=== PATIENT | male | born 1960 | race Caucasian/White ===

== ENCOUNTER → 2018-06-18 | Outpatient (CLI) | payer OTHER | LOC: COL.PUL 08:00 | DX: Z02.71 Encounter for disability determination (principal) ==

== ENCOUNTER → 2018-07-07 | Outpatient (CLI) | payer OTHER ==
[2018-07-07 10:46] LABS: HEMATOCRIT 38.3 % (42.0-52.0); HEMOGLOBIN 12.3 g/dl (13.5-18.0); MEAN CELL VOLUME 86 fl (80.0-100.0); MEAN CORPUSCULAR HEMOGLOBIN 28 pg (27.0-31.0); MEAN CORPUSCULAR HGB CONC 32 g/dl (33.0-37.0); MEAN PLATELET VOLUME 10.6 fl (7.4-10.4); PLATELET COUNT 313 K/mm3 (130-400); RED BLOOD COUNT 4.44 M/mm3 (4.20-5.60); REDCELL DISTRIBUTION WIDTH-CV 14.6 % (11.5-14.5)
[2018-07-07 10:55] LABS: ALBUMIN 4.4 gm/dL (3.5-5.0); CALCIUM 9.9 mg/dL (8.4-10.2); CREATININE, serum 1.34 mg/dL (0.66-1.25); PHOSPHOROUS 3.7 mg/dL (2.5-4.5); POTASSIUM 4.7 mmol/L (3.4-5.0)
== END ==
LOC: COL.LAB 10:13
DX: Z01.89 Encounter for other specified special examinations (principal)

== ENCOUNTER 2018-08-15 06:22 | Day surgery (SDC) | payer OTHER ==
[~2018-08-15] VITALS: Ht 167.6 cm; Wt 107.8 kg
[2018-08-15] MEDS ORDERED: DEMADEX 20MG20 M1 PO (06:44)
[2018-08-15] MEDS ORDERED: COZAAR100 MG PO (06:44)
[2018-08-15] MEDS ORDERED: K-TAB20 PO (06:46)
[2018-08-15] MEDS ORDERED: BYSTOLIC20 MG PO (06:46)
[2018-08-15] MEDS ORDERED: GLUCOPHAGE1000 MG PO (06:46)
[2018-08-15] MEDS ORDERED: HUMULIN R U-500 U/ML SQ (06:47)
[2018-08-15] MEDS ORDERED: JARDIANCE25 PO (06:48)
[2018-08-15] MEDS ORDERED: BASAGLAR K100 UNIT/1 SQ (06:48)
[2018-08-15] MEDS ORDERED: VICTOZA6 MG/ML SQ (06:48)
[2018-08-15] MEDS ORDERED: NEURONTIN600 MG/TAB PO (06:49)
[2018-08-15] MEDS ORDERED: LUPRON DEPOT45 MG INJ (06:50)
[2018-08-15] MEDS ORDERED: POLY-IRON 150150 MG PO (06:51)
[2018-08-15] MEDS ORDERED: PROTONIX 40MG T40 MG PO (06:51)
[2018-08-15] MEDS ORDERED: ULORIC40 MG PO (06:51)
[2018-08-15] MEDS ORDERED: CRESTOR5 MG PO (06:52)
[2018-08-15] MEDS ORDERED: NIASPAN1000 MG PO (06:52)
[2018-08-15] MEDS ORDERED: ASPIRIN 81M81 MG/TA2 PO (06:53)
[2018-08-15] MEDS ORDERED: OMEGA-3 1000 MG1 CAP PO (06:53)
[2018-08-15] MEDS ORDERED: THE MEDICINE S200 M2 PO (06:54)
[2018-08-15] MEDS ORDERED: VITAMIND3 5000 PO (06:54)
[2018-08-15] MEDS ORDERED: TRIAMCINOLONE A15 G1 TP (06:55)
[2018-08-15 06:56] VITALS: BP 146/84; PULSE 92; TEMP 99.1
--- NOTE | 2018-08-15 07:13 | NUR ---
Patient's blood glucose at [address] Salguero and Eric Rankin CRNA. VORB received from Dr. Salguero for moderate dose sliding scale Novolog. Order faxed to pharmacy. Will dose patient per sliding scale order and re-check blood glucose prior to OR.
--- NOTE | 2018-08-15 07:38 | NUR ---
eMAR would not allow co-signer to be entered for Novolog sliding scale dose. Shea Villafuerte double verified and served as co-signer for sliding scale dose of 8 units SQ Novolog.
--- NOTE | 2018-08-15 08:03 | NUR ---
Blood glucose re-checked at 0800, reading 330. Notified Dr. Salguero of result. Waiting for orders.
--- NOTE | 2018-08-15 08:05 | NUR ---
Maynor Granda CRNA at the bedside to evaluate patient.
--- NOTE | 2018-08-15 08:20 | NUR ---
Patient's surgery is cancelled and to be re-scheduled per Maynor Granda CRNA. Will discharge patient to home.
--- NOTE | 2018-08-15 08:26 | NUR ---
Dr. Salguero at the bedside at this time.
--- NOTE | 2018-08-15 08:34 | NUR ---
PIV removed with catheter intact and hemostasis achieved. Patient instructed to keep monitoring his blood glucose levels closely today at home. He is changing to clothing independently.
--- NOTE | 2018-08-15 08:40 | NUR ---
Patient discharged to home at this time.
== END 2018-08-15 08:40 | disposition home or self-care (01) ==
LOC: SDCO 06:22
DX: R73.9 Hyperglycemia, unspecified (principal)
CPT/HCPCS: J1815; J7030

== ENCOUNTER 2018-09-05 05:36 | Day surgery (SDC) | payer OTHER | END 2018-09-05 09:40 | disposition home or self-care (01) | LOC: SDCO 05:36 | DX: N99.114 Postprocedural urethral stricture, male, unspecified (principal); Z85.46 Personal history of malignant neoplasm of prostate; N39.3 Stress incontinence (female) (male); I42.9 Cardiomyopathy, unspecified; E11.22 Type 2 diabetes mellitus with diabetic chronic kidney disease; I13.0 Hypertensive heart and chronic kidney disease with heart failure and stage 1 through stage 4 chronic kidney disease, or unspecified chronic kidney disease; N18.3 Chronic kidney disease, stage 3 (moderate); I50.9 Heart failure, unspecified; E11.42 Type 2 diabetes mellitus with diabetic polyneuropathy; Z79.4 Long term (current) use of insulin; G47.33 Obstructive sleep apnea (adult) (pediatric); K21.9 Gastro-esophageal reflux disease without esophagitis; M10.9 Gout, unspecified; G89.29 Other chronic pain; M54.5 Low back pain; E78.5 Hyperlipidemia, unspecified; N52.9 Male erectile dysfunction, unspecified; Z79.899 Other long term (current) drug therapy; Z79.82 Long term (current) use of aspirin; Z83.3 Family history of diabetes mellitus; Z82.49 Family history of ischemic heart disease and other diseases of the circulatory system; Z80.8 Family history of malignant neoplasm of other organs or systems; Z82.3 Family history of stroke; F17.210 Nicotine dependence, cigarettes, uncomplicated; E66.01 Morbid (severe) obesity due to excess calories; Z92.3 Personal history of irradiation; D64.9 Anemia, unspecified; R20.2 Paresthesia of skin ==

== ENCOUNTER → 2019-11-27 | Outpatient (CLI) | payer MEDICARE, BC ==
[~2019-11-27] MED LIST: ASPIRIN 81M81 MG/TA2 PO; BASAGLAR K100 UNIT/1 SQ; BYSTOLIC20 MG PO; CIPRO 500MG TA500 MG PO; COZAAR100 MG PO; CRESTOR5 MG PO; DEMADEX 20MG20 M1 PO; GLUCOPHAGE1000 MG PO; HUMULIN R U-500 U/ML SQ; JARDIANCE25 PO; K-TAB20 PO; LUPRON DEPOT45 MG INJ; NEURONTIN600 MG/TAB PO; NIASPAN1000 MG PO; OMEGA-3 1000 MG1 CAP PO; POLY-IRON 150150 MG PO; PROTONIX 40MG T40 MG PO; THE MEDICINE S200 M2 PO; TRIAMCINOLONE A15 G1 TP; ULORIC40 MG PO; VICTOZA6 MG/ML SQ; VITAMIND3 5000 PO
== END ==
LOC: COL.RAD 09:45
DX: E11.22 Type 2 diabetes mellitus with diabetic chronic kidney disease (principal); N18.3 Chronic kidney disease, stage 3 (moderate)

== ENCOUNTER 2020-03-24 12:08 | Day surgery (SDC) | payer MEDICARE ==
[~2020-03-24] VITALS: Ht 167.6 cm; Wt 112.2 kg
[2020-03-24 12:49] VITALS: BP 17/59; PULSE 95; TEMP 98.8
[2020-03-24] MEDS ORDERED: BENICAR 20MG TA20 MG PO (13:11)
[2020-03-24] MEDS ORDERED: LANTUS100 U/ML SQ (13:27)
[2020-03-24] MEDS ORDERED: LOFIBRA160 MG PO (13:30)
[2020-03-24] MEDS ORDERED: MITIGARE0.6 MG PO (13:33)
[2020-03-24] MEDS ORDERED: FLOMAX 0.40.4 MG/CAP PO (13:40)
[2020-03-24 15:20] VITALS: BP 119/59; PULSE 83; TEMP 98.1
--- NOTE | 2020-03-24 15:25 | NUR ---
PATIENT TRANSPORTED TO BAY 2 PER CART ACCOMPANIED BY PACU STAFF. MONITORS REAPPLIED. VSS ON ROOM AIR. PATIENT ALERT AND TALKING WITH STAFF AND . DENIES DISCOMFORT AND NAUSEA. FOLY INTACT AND DRAINING CLEAR YELLOW URINE. 1530 PATIENT GIVEN APPLE SAUCE AND DIET PEPSI.
[2020-03-24 15:30] VITALS: BP 123/68; PULSE 84
--- NOTE | 2020-03-24 15:30 | NUR ---
VSS ON ROOM AIR. PATIENT TALKING WITH . DENIES DISCOMFORT AND NAUSEA. EATS APPLE SAUCE AND DRINKS DIET PEPSI WITHOUT PROBLEMS. CARDENAS DRAINING CLEAR YELLOW URINE.
[2020-03-24 15:40] VITALS: TEMP 98.8
[2020-03-24 15:45] VITALS: BP 141/75; PULSE 83
[2020-03-24 16:00] VITALS: BP 147/73; PULSE 85
--- NOTE | 2020-03-24 16:00 | NUR ---
PRIOR NOTED IS AT 1545. IV SITE DC'D WITH CATHETER TIP INTACT. PRESSURE AND BANDAGE APPLIED. PATIENT CHANGES INTO STREET CLOTHES. 1615 PATIENT DISCHARGED PER WHEEL CHAIR ACCOMPANIED BY AMBULATORY STAFF TO PRIVATE VECHILE DRIVEN BY .
--- NOTE | 2020-03-24 16:43 | NUR ---
VSS ON ROOM AIR. PATIENT DENIES DISCOMFORT AND NAUSEA. DISCHARGE INSTRUCTIONS GIVEN VERBAL AND DISCHARGE PACKET GIVEN TO PATIENT. CARDENAS CARE REVIEW WITH PATIENT. PATIENT STATES HE HAS HAD A CARDENAS PRIOR AND AWARE OF CARE. LEG BAG PROVIDED AND ACHOLOL WIPES PROVIDED.
== END 2020-03-24 16:15 | disposition home or self-care (01) ==
LOC: SDCO 12:08
DX: N99.113 Postprocedural anterior bulbous urethral stricture, male (principal); M19.90 Unspecified osteoarthritis, unspecified site; I13.0 Hypertensive heart and chronic kidney disease with heart failure and stage 1 through stage 4 chronic kidney disease, or unspecified chronic kidney disease; E11.22 Type 2 diabetes mellitus with diabetic chronic kidney disease; I50.9 Heart failure, unspecified; N18.3 Chronic kidney disease, stage 3 (moderate); E11.42 Type 2 diabetes mellitus with diabetic polyneuropathy; M10.9 Gout, unspecified; E78.5 Hyperlipidemia, unspecified; G47.33 Obstructive sleep apnea (adult) (pediatric); G89.29 Other chronic pain; D63.1 Anemia in chronic kidney disease; M54.5 Low back pain; K21.9 Gastro-esophageal reflux disease without esophagitis; Z85.46 Personal history of malignant neoplasm of prostate; Z79.82 Long term (current) use of aspirin; Z79.4 Long term (current) use of insulin; Z87.891 Personal history of nicotine dependence; Z92.3 Personal history of irradiation; Z90.79 Acquired absence of other genital organ(s)
CPT/HCPCS: C1769; C1894; J0690; J1100; J1885; J2405; J2704; J3010; J7030; J7042

== ENCOUNTER → 2023-10-03 | Outpatient (CLI) | payer MEDICARE, BC ==
[~2023-10-03] MED LIST changes: +BENICAR 20MG TA20 MG PO; +FLOMAX 0.40.4 MG/CAP PO; +LANTUS100 U/ML SQ; +LOFIBRA160 MG PO; +MITIGARE0.6 MG PO
== END ==
LOC: COL.RAD 10:30
DX: E83.52 Hypercalcemia (principal)
CPT/HCPCS: A9500-JZ